=== PATIENT | female | born 1980 | race Caucasian/White ===

== ENCOUNTER 2025-07-14 13:34 | Emergency (ER) | payer OTHER, MEDICAID, SELFPAY ==
[2025-07-14 13:51] VITALS: BP 106/53; PULSE 79; RESP 18; TEMP 36.4; O2SAT 97; BMI 31.6
--- NOTE | 2025-07-14 13:57 | DI.RAD.S_ITS ---
PROCEDURE: XR CHEST 1V INDICATIONS: cough TECHNIQUE: One view of the chest was acquired. COMPARISON: None. FINDINGS: Surgical changes and devices: None. Lungs and pleura: Lungs are clear. No pleural effusions or pneumothorax. Mediastinum: Mediastinal contours appear normal. Heart size is normal. Bones and chest wall: No suspicious bony lesions. Overlying soft tissues appear unremarkable. Healed left rib fractures. IMPRESSION: No acute cardiopulmonary abnormality is seen. Dictated by: Evan Cheng M.D. on 07/14/2025 at 14:48 Approved by: Evan Cheng M.D. on 07/14/2025 at 14:49
[2025-07-14 15:00] LABS: Influenza A - CEPHEID Flu A NEGATIVE (NEGATIVE); Influenza B - CEPHEID Flu B NEGATIVE (NEGATIVE)
[2025-07-14 15:06] LABS: COVID-19 CEPHEID 4-PLEX PCR Negative (Negative)
--- NOTE | 2025-07-14 15:07 | ED_ITS ---
HPI - URI/Sore Throat General Chief Complaint: Upper Respiratory Symptoms Stated Complaint: Possible pnuemonia Time Seen by Provider: 07/14/25 13:43 Source: patient Mode of arrival: Ambulatory History of Present Illness HPI Narrative: 45-year-old female presents with cough with sputum production, shortness breath, wheezing, started yesterday along with fever, chills, body aches. Other than what is stated 14 point review of system is negative. Related Data Previous Rx's ?Medication ?Instructions ?Recorded albuterol sulfate 90 mcg/actuation 1 inh inhalation Q4 -6H PRN 07/14/25 breath activated powder inhaler shortness of breath or wheezing #1 ea prednisone 20 mg tablet 20 mg PO BID #10 tabs Allergies Allergy/AdvReac Type Severity Reaction Status Date / Time Aspirin AdvReac Unknown Uncoded 07/14/25 13:57 Review of Systems Review of Systems ROS Unobtainable: All systems reviewed & are unremarkable except as noted in HPI and below Patient History Social History Smoking Status: Current every day smoker Smoking Status: Current every day smoker tobacco type: vaping Exam Narrative Exam Narrative: GENERAL: [45] year old patient appears stated age. Well-developed patient, in mild distress. HEAD: Atraumatic. Normocephalic. EYES: Pupils equal round and reactive. Extraocular motions intact. No scleral icterus. No injection or drainage. ENT: Nose without bleeding, purulent drainage. Throat without erythema, tonsillar hypertrophy or exudate. Airway patent. NECK: Trachea midline. Non tender CARDIOVASCULAR: Regular rate and rhythm without murmurs, gallops, or rubs. RESPIRATORY: Clear to auscultation. Breath sounds equal bilaterally. No wheezes, rales, or rhonchi. GASTROINTESTINAL: Abdomen soft, non-tender, nondistended. EXTREMITIES: No edema or joint tenderness. BACK: Nontender without deformity or crepitance. No flank tenderness. NEURO: AOx3. SKIN: No rash or erythema of visible areas Initial Vital Signs Initial Vital Signs: Vital Signs Temperature 97.5 F L 07/14/25 13:51 Pulse Rate 79 07/14/25 13:51 Respiratory Rate 18 07/14/25 13:51 Blood Pressure 106/53 L 07/14/25 13:51 Pulse Oximetry 97 07/14/25 13:51 Oxygen Delivery Method Room Air 07/14/25 13:51 Course Orders Ordered: ED Orders 07/14/25 13:57 Chest [XR chest 1V] Stat 07/14/25 14:10 Covid-19 + FLU A/B + RSV - PCR Stat Vital Signs Vital signs: Vital Signs - 8 hr 07/14/25 13:51 Temperature 97.5 F L Pulse Rate 79 Respiratory Rate 18 Blood Pressure 106/53 L Pulse Oximetry 97 Oxygen Delivery Method Room Air MDM - URI/Sore Throat Lab Data Labs: Lab Results 07/14/25 Range/Units 14:10 SARS-CoV-2 (PCR) Negative (Negative) Influenza A (RT-PCR) Flu a negative (NEGATIVE) Influenza B (RT-PCR) Flu b negative (NEGATIVE) RSV (PCR) Negative (Negative) Imaging Data Chest x-ray: Radiologist's Impression: [address] [address] XRay Report Signed Patient: Saritha Murphy MR#: [id number] : 1980 Acct:[id number] Age/Sex: 45 / F Date of Service: 07/14/25 Loc: ED Accession Number: [id number] Procedure: XR chest 1V Ordering Provider: Jb Colon D.O. PROCEDURE: XR CHEST 1V INDICATIONS: cough TECHNIQUE: One view of the chest was acquired. COMPARISON: None. FINDINGS: Surgical changes and devices: None. Lungs and pleura: Lungs are clear. No pleural effusions or pneumothorax. Mediastinum: Mediastinal contours appear normal. Heart size is normal. Bones and chest wall: No suspicious bony lesions. Overlying soft tissues appear unremarkable. Healed left rib fractures. IMPRESSION: No acute cardiopulmonary abnormality is seen. Dictated by: Evan Cheng M.D. on 07/14/2025 at 14:48 Approved by: Evan Cheng M.D. on 07/14/2025 at 14:[address] [facility] Narrative Medical decision making narrative: All labwork, vital signs, manager of housekeeping note, med list, previous ER visits and all imaging studies reviewed. Covid/flu/rsv/cxr all showed no acute process. Differential dx pna, covid/flu/rsv/bronchitis. D/c home on albuterol and prednisone rx. Discharge Plan Departure Patient Disposition: Home Clinical Impression: Bronchitis Instructions: DI for Acute Bronchitis Activity Restrictions/Additional Instructions: Return with new or worsening symptoms. Take medication as directed. Follow up pcp 1 week. Prescriptions: New prednisone 20 mg tablet 20 mg PO BID Qty: 10 0RF albuterol sulfate 90 mcg/actuation aerosol powdr breath activated 1 inh inhalation Q4-6H PRN (Reason: shortness of breath or wheezing) Qty: 1 0RF Referrals: Palma Wilder MD [Primary Care Provider, Family Practice] Stand Alone Forms: Patient Portal/API
--- NOTE | 2025-07-14 15:09 | PC.NURSE ---
Patient visualized leaving with all belongings through the ED doors at 1505. Provider made aware. Has not returned.
--- NOTE | 2025-07-14 15:20 | PC.NURSE ---
Patient back in the lobby, stated she left to have a cigarette, notified provider.
[2025-07-14 15:38] VITALS: BP 114/56; PULSE 89; RESP 18; O2SAT 97
== END 2025-07-14 15:45 | disposition home or self-care (01) ==
PROVIDERS: Emergency Provider Family Medicine; PCP Family Medicine
DX: J40 Bronchitis, not specified as acute or chronic (principal); F17.200 Nicotine dependence, unspecified, uncomplicated
CPT/HCPCS: 71045; 87637; 99282; 99283